=== PATIENT | female | born 1990 | race American Indian/Alaskan Native ===

== ENCOUNTER 2016-12-14 17:31 | Emergency (ER) | payer MEDICAID, OTHER ==
--- NOTE | 2016-12-14 18:08 | Emergency Department Report ---
Stated Complaint: ABD PAIN/18 WEEKS PREG Time Seen by Provider: 12/14/16 18:05 - HPI History of Present Illness: PT c/o cramping to lower and middle abd. PT states she is 18 weeks . PT states today the cramping was worse. PT states she saw [employer] [employer] 3 weeks ago. PT states her only ultrasound was done at 5 weeks. - ROS Review of Systems: - vaginal bleeding - dysuria - Exam Physical Exam: PT looks well, non toxic abd soft and non tender MSE screening note: Focused history and physical exam performed. Due to findings the following was ordered: labs, us ED Disposition for MSE Condition: Stable
[2016-12-14 18:12] VITALS: BP 125/81
[2016-12-14 18:39] LABS: Basophils % (Auto) 0.2 % (0.0-1.8); Eosinophils % (Auto) 0.9 % (0.0-4.3); Hematocrit 30.4 % (30.3-42.9); Hemoglobin 10.5 gm/dl (10.1-14.3); Mean Corpuscular HGB Conc 35 % (30-34); Mean Corpuscular Hemoglobin 30 pg (28-32); Mean Corpuscular Volume 87 fl (79-97); Platelet Count 212 K/mm3 (140-440); Red Blood Count 3.49 M/mm3 (3.65-5.03); Red Cell Distribution Width 14.1 % (13.2-15.2); White Blood Count 11.1 K/mm3 (4.5-11.0)
[2016-12-14 18:50] LABS: Alanine Aminotransferase 14 units/L (7-56); Albumin 3.7 g/dL (3.9-5); Albumin/Globulin Ratio 1.4 %; Alkaline Phosphatase 65 units/L (35-129); Anion Gap 16 mmol/L; BUN/Creatinine Ratio 23; Bilirubin,Total < 0.20 mg/dL (0.1-1.2); Blood Urea Nitrogen 9 mg/dL (7-17); Carbon Dioxide 23 mmol/L (22-30); Chloride 100.2 mmol/L (98-107); Glucose 81 mg/dL (65-100); Potassium 3.6 mmol/L (3.6-5.0); Sodium 136 mmol/L (137-145); Total Protein 6.3 g/dL (6.3-8.2)
[2016-12-14 19:06] LABS: Bilirubin,Urine NEG (Negative); Blood,Urine NEG (Negative); Ketones,Urine NEG (Negative); Leukocyte Esterase,Urine NEG (Negative); Mucus,Urine 1+ /HPF; Nitrite,Urine NEG (Negative); Protein,Urine <15 mg/dL mg/dL (Negative); RBC,Urine < 1.0 /HPF (0.0-6.0); Urobilinogen,Urine < 2.0 mg/dL (<2.0)
--- NOTE | 2016-12-14 20:56 | Emergency Department Report ---
ED Female HPI - General Chief complaint: Abdominal Pain Stated complaint: ABD PAIN/18 WEEKS PREG Time Seen by Provider: 12/14/16 18:05 Source: patient Mode of arrival: Ambulatory Limitations: No Limitations - History of Present Illness Initial comments: Patient is 26 years old female 3 para 1 . Patient is 18 weeks coming with abdominal pain suprapubic crampy in nature. Patient denied any vaginal bleeding or discharge no dysuria, no nausea no vomiting. MD Complaint: pelvic pain -: Gradual, days(s) (2 days) Location: suprapubic Radiation: non-radiating Severity scale (0 -10): 4 Quality: cramping Improves with: none Worsens with: none Are you Now?: Yes (18 weeks ) Associated Symptoms: abdominal pain. denies: vaginal discharge, vaginal bleeding, nausea/vomiting, fever/chills, headaches, loss of appetite, dysuria, hematuria, shortness of breath, syncope, weakness - Related Data Sexually active: Yes : 3 Para: 1 Home Medications Medication Instructions Recorded Confirmed Last Taken Vit-Fe Fumar-FA [ 1 tab PO QDAY 12/14/16 12/14/16 Unknown Vitamin] Allergies Allergy/AdvReac Type Severity Reaction Status Date / Time No Known Allergies Allergy Verified 12/14/16 18:12 ED Review of Systems ROS: Stated complaint: ABD PAIN/18 WEEKS PREG Other details as noted in HPI Comment: All other systems reviewed and negative Constitutional: denies: chills, fever Respiratory: denies: cough, orthopnea, shortness of breath, SOB with exertion Cardiovascular: denies: chest pain, palpitations, dyspnea on exertion Gastrointestinal: abdominal pain. denies: nausea, vomiting, diarrhea, constipation, hematemesis, melena, hematochezia Genitourinary: denies: urgency, dysuria, frequency, hematuria Neurological: denies: headache, weakness ED Past Medical Hx - Past Medical History Previous Medical History?: No Hx Hypertension: No Hx Heart Attack/AMI: No Hx Congestive Heart Failure: No Hx Diabetes: No Hx Deep Vein Thrombosis: No Hx Renal Disease: No Hx Sickle Cell Disease: No Hx Seizures: No Hx Asthma: No Hx COPD: No Hx HIV: No - Surgical History Past Surgical History?: Yes Additional Surgical History: L ovary removed - Social History Smoking Status: Never Smoker Substance Use Type: None - Medications Home Medications: Home Medications Medication Instructions Recorded Confirmed Last Taken Type Vit-Fe Fumar-FA [ 1 tab PO QDAY 12/14/16 12/14/16 Unknown History Vitamin] ED Physical Exam - General Limitations: No Limitations General appearance: alert, in no apparent distress - Head Head exam: Present: atraumatic, normocephalic - Eye Eye exam: Present: normal appearance - ENT ENT exam: Present: normal exam, normal orophraynx, mucous membranes moist - Neck Neck exam: Present: normal inspection - Respiratory Respiratory exam: Present: normal lung sounds bilaterally. Absent: respiratory distress, wheezes, rales, rhonchi - Cardiovascular Cardiovascular Exam: Present: regular rate, normal rhythm, normal heart sounds - GI/Abdominal GI/Abdominal exam: Present: soft, normal bowel sounds. Absent: distended, tenderness, guarding, rebound, rigid, diminished bowel sounds, mass, bruit, pulsatile mass, hernia - Extremities Exam Extremities exam: Present: normal inspection, full ROM, normal capillary refill. Absent: tenderness - Back Exam Back exam: Present: normal inspection. Absent: CVA tenderness (R), CVA tenderness (L) - Neurological Exam Neurological exam: Present: alert, oriented X3, CN II-XII intact, normal gait - Skin Skin exam: Present: warm, intact, normal color ED Course Vital Signs 12/14/16 18:06 Temperature 98.5 F Pulse Rate 102 H Respiratory 16 Rate Blood Pressure 125/81 O2 Sat by Pulse 100 Oximetry ED Medical Decision Making - Lab Data Result diagrams: 12/14/16 18:13 12/14/16 18:13 - Radiology Data Radiology results: report reviewed Transvaginal ultrasound OB limited showed a 18 weeks 6 days and to try and was no complication Critical care attestation.: If time is entered above; I have spent that time in minutes in the direct care of this critically ill patient, excluding procedure time. ED Disposition Clinical Impression: Abdominal pain affecting Disposition: DC-01 TO HOME OR SELFCARE Is pt being admited?: No Condition: Stable Instructions: Abdominal Pain (ED), Abdominal Pain in (ED) Referrals: PRIMARY CARE, [Primary Care Provider] - 3-5 Days
--- NOTE | 2016-12-14 21:56 | Ultrasound Report ---
FINAL REPORT EXAM: US OB \T\gt; = 14 WEEKS FETUS HISTORY: 18 weeks , pain TECHNIQUE: Obstetrical pelvic sonographic imaging was performed. PRIORS: None FINDINGS: There is a single live intrauterine gestation in vertex presentation. DEX is grossly within normal limits but not measured. Anterior grade 1 placenta without evidence of previa or abruption. heart rate measures 143 beats per minute. Cervical length measures 3.8 centimeters. measurements as follows: Biparietal diameter 18 weeks 5 days Head circumference 18 weeks 5 days Abdominal circumference 18 weeks 3 days Femur length 18 weeks 3 days. HC/AC ratio 1.23 Cephalic index 83.1. Estimated weight 240 grams +/-36 grams. Per the Hadlock criteria estimated weight is the 30th percentile. Sonographic gestational age by today's exam 18 weeks 4 days. Estimated due date by today's ultrasound 05/13/2017. IMPRESSION: Single live intrauterine gestation at 18 weeks 4 days with estimated due date by today's ultrasound of 05/13/2017. No evidence for abruption seen although ultrasound has low sensitivity in evaluating for abruption. No retroplacental hemorrhage. Anterior placenta without previa.
== END 2016-12-14 22:15 | disposition home or self-care (01) ==
LOC: ED 17:31
DX: O26.892 Other specified pregnancy related conditions, second trimester (principal); R10.9 Unspecified abdominal pain; Z90.721 Acquired absence of ovaries, unilateral; Z3A.18 18 weeks gestation of pregnancy
CPT/HCPCS: 36415; 76805; 80053; 81001; 84702; 85025; 86900; 86901

== ENCOUNTER 2017-05-03 21:17 | Outpatient (CLI) | payer MEDICAID, OTHER ==
[2017-05-03 21:39] VITALS: BP 119/69
== END 2017-05-03 22:15 | disposition home or self-care (01) ==
LOC: TRG 21:17 → LD 21:32 → TRG 22:15
PROVIDERS: ATTEND Obstetrics & Gynecology
DX: O36.8130 Decreased fetal movements, third trimester, not applicable or unspecified (principal); Z3A.38 38 weeks gestation of pregnancy
CPT/HCPCS: 59025

== ENCOUNTER 2017-05-05 21:29 | Inpatient (IN) | payer MEDICAID ==
[2017-05-05] MEDS ORDERED: STADOL IV PRN (22:09)
[2017-05-05] MEDS ORDERED: NORMOSOL-R PH 7.4 2,000 ML IV ONE (22:30)
[2017-05-05 22:56] LABS: Basophils % (Auto) 0.1 % (0.0-1.8); Eosinophils % (Auto) 0.5 % (0.0-4.3); Hematocrit 33.1 % (30.3-42.9); Hemoglobin 10.9 gm/dl (10.1-14.3); Lymphocytes # (Auto) 1.5 K/mm3 (1.2-5.4); Lymphocytes % (Auto) 16.6 % (13.4-35.0); Mean Corpuscular HGB Conc 33 % (30-34); Mean Corpuscular Hemoglobin 27 pg (28-32); Mean Corpuscular Volume 82 fl (79-97); Monocytes # (Auto) 0.7 K/mm3 (0.0-0.8); Monocytes % (Auto) 8.2 % (0.0-7.3); Platelet Count 210 K/mm3 (140-440); Red Blood Count 4.03 M/mm3 (3.65-5.03); Red Cell Distribution Width 14.7 % (13.2-15.2)
[2017-05-06] MEDS ORDERED: ZOFRAN IV PRN (00:16)
[2017-05-06] MEDS ORDERED: NARCAN 2 MG/2 ML IV PRN (00:16)
[2017-05-06] MEDS ORDERED: BENADRYL IV PRN (00:16)
[2017-05-06] MEDS ORDERED: ePHEDrine SULFATE IV PRN (00:16)
[2017-05-06] MEDS ORDERED: MARCAINE 0.5% INFILTRATI ONE (00:35)
[2017-05-06] MEDS ORDERED: fentaNYL-BUPIV 2 MCG/ML-0.125% 200 MCG/100 ML BAG EPIDURAL SCH (01:00)
[2017-05-06] MEDS ORDERED: XYLOCAINE 2% INFILTRATI ONE ×2 (01:29→01:35)
[2017-05-06] MEDS ORDERED: MINERAL OIL ONE (01:29)
[2017-05-06] MEDS ORDERED: MINERAL OIL PO PRN (01:35)
[2017-05-06] MEDS ORDERED: PITOCin/NS 20 UNIT/1000ML DRIP 20,000 MILLIUNITS/1,000 ML BAG IV ONE (01:38)
--- NOTE | 2017-05-06 01:43 | History and Physical Report ---
History of Present Illness Date of examination: 05/06/17 Date of admission: 05/05/17 22:09 Chief complaint: Labor Pains History of present illness: Early entry to care, co-pratik with [facility]. course complicated by Anemia, Excessive maternal weight gain, and HAs. 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 (EAB and oophorectomy) [employer] WORKER History: chlamydia, gonorrhea Family/Genetic History: Down's syndrome (sister) Social history: no significant social history, single - Obstetrical History Expected Date of Delivery: 05/16/17 Actual Gestation: 38 Week(s) 4 Day(s) : 3 Para: 1 Number of Pregnancies: 1 Induced : 1 Number of Living Children: 1 #1 Infant Gender: Male year: Birthweight: 2.693 kg Method of Delivery: Vaginal Gestational age at delivery: 35 Medications and Allergies Allergies Allergy/AdvReac Type Severity Reaction Status Date / Time No Known Allergies Allergy Verified 12/14/16 18:12 Home Medications Medication Instructions Recorded Confirmed Last Taken Type Vit-Fe Fumar-FA [ 1 tab PO QDAY 12/14/16 12/14/16 Unknown History Vitamin] Active Meds: Active Medications Butorphanol Tartrate (Stadol) 2 mg IV Q2H PRN PRN Reason: Labor Pain Last Admin: 05/05/17 22:40 Dose: 2 mg Diphenhydramine HCl (Benadryl) 12.5 mg IV Q2H PRN PRN Reason: Itching Ephedrine Sulfate (Ephedrine Sulfate) 10 mg IV Q2M PRN PRN Reason: Hypotension Fentanyl/Bupivacaine/Sodium Chlor (Fentanyl-Bupiv 2 Mcg/Ml-0.125%) 200 mcg in 100 mls @ 12 mls/hr EPIDURAL TITR CHRIS; Protocol Last Admin: 05/06/17 00:50 Dose: 12 mls/hr Influenza Virus Vaccine Quadrival (Fluarix Quad [id number](36 Mos+) 0.5 ml IM .ONCE ONE Stop: 05/06/17 12:01 Lidocaine (Xylocaine 2%) 20 ml INFILTRATI ONCE ONE Stop: 05/06/17 01:36 Mineral Oil (Mineral Oil) 30 ml PO QHS PRN PRN Reason: Constipation Naloxone HCl (Narcan 2 Mg/2 Ml) 0.2 mg IV Q5M PRN PRN Reason: Respiratory sedation Ondansetron HCl (Zofran) 4 mg IV Q8H PRN PRN Reason: Nausea And Vomiting Review of Systems All systems: negative - Vital Signs Vital signs: Vital Signs Temp Pulse Resp BP 98.7 F 72 18 137/74 05/05/17 21:47 05/05/17 21:47 05/05/17 21:47 05/05/17 21:47 Temp Pulse Resp BP Pulse Ox 97.7 F 89 18 122/75 100 05/05/17 22:52 05/06/17 01:33 05/05/17 22:52 05/06/17 01:12 05/06/17 01:33 - Physical Exam Breasts: Positive: normal Cardiovascular: Regular rate Lungs: Positive: Clear to auscultation, Normal air movement Abdomen: Positive: normal appearance, soft, normal bowel sounds Genitourinary (Female): Positive: normal external genitalia, normal perenium Vagina: Positive: normal moisture Uterus: Positive: enlarged Anus/Rectum: Positive: normal perianal skin Extremities: Positive: normal - Obstetrical FHR: category 1 Uterine Contraction Monitor Mode: External Cervical Dilatation: 9 (Small amount of clear fluid upon AROM at 0123) Cervical Effacement Percentage: 100 station: +1 Uterine Contraction Pattern: Regular Uterine Tone Measurement Phase: Resting Uterine Contraction Intensity: Moderate Results Result Diagrams: 05/05/17 22:30 Abnormal lab results 05/05/17 Range/Units 22:30 MCH 27 L (28-32) pg [place] % (Auto) 8.2 H (0.0-7.3) % Seg Neutrophils % 74.6 H (40.0-70.0) % All other labs normal. Assessment and Plan A: IUP @ 38 4/7 Weeks Category I Tracing Active Labor GBS Negative P: Admit to L&D per Routine Orders AROM
[2017-05-06] MEDS ORDERED: BENADRYL PO PRN (02:14)
[2017-05-06] MEDS ORDERED: DULCOLAX PR PRN (02:14)
--- NOTE | 2017-05-06 02:19 | Procedure Note ---
OB Delivery Note - Delivery Date of Delivery: 05/06/17 (0158) Surgeon: CHANDU COLEMAN Estimated blood loss: other (150) - Vaginal Delivery presentation: vertex Delivery position: OA Intrapartum events: none Delivery induction: none Delivery augmentation: rupture of membranes Delivery monitor: external FHT, external uterine Route of delivery: Delivery placenta: spontaneous Delivery cord: 3 umbilical vessels Episiotomy: none Delivery laceration: none Anesthesia: epidural Delivery comments: of a live 6'15 male over a intact perineum under epidural anesthesia with Apgars of 8 and 9 at 0158 on 05/06/2017. directly to maternal abd/chest, skin to skin contact. Spontaneous delivery of placenta complete and intact with [place] side presenting at 0201. Fundus is firm and midline located 4 below the U. Lochia is scant. Delayed cord clamping and cutting; Cord cut by the Father of the Baby. - A at 1 minute: 8 at 5 minutes: 9 Gender: Male (6'15)
[2017-05-06] MEDS ORDERED: SODIUM CHLORIDE FLUSH SYRINGE 10 ML IV PRN (03:00)
[2017-05-06] MEDS: MOTRIN PO SCH ×3 (06:36→17:48)
[2017-05-06] MEDS: NORCO 5/325 PO PRN ×2 (09:19→17:49)
[2017-05-06] MEDS ORDERED: Fluarix Quad 2017-2018(36 MOS+ IM ONE (12:00)
[2017-05-06] MEDS: PRENATAL VITAMIN PO SCH (12:54)
[2017-05-06 17:47] LABS: Hematocrit 28.3 % (30.3-42.9); Hemoglobin 9.5 gm/dl (10.1-14.3)
[2017-05-07] MEDS: NORCO 5/325 PO PRN (00:08)
[2017-05-07] MEDS: MOTRIN PO SCH ×3 (00:09→12:35)
--- NOTE | 2017-05-07 09:19 | Progress Note ---
Assessment and Plan A: day 1, Stable P: Routine care Plan discharge tomorrow morning Subjective - Subjective Date of service: 05/07/17 Principal diagnosis: spontaneous labor Interval history: Patient reports: appetite normal, voiding normally, pain well controlled, flatus , ambulating normally : doing well, nursing well (Will begin supplementation due to jaundice) Objective - Vital Signs Latest vital signs: Vital Signs Temp Pulse Resp BP Pulse Ox 05/07/17 00:25 98.4 F 89 18 110/73 100 05/06/17 17:49 20 05/06/17 17:48 20 05/06/17 17:00 97.7 F 98 H 18 102/82 05/06/17 13:23 97.4 F L 94 H 18 123/68 05/06/17 12:24 20 05/06/17 10:19 220 H 05/06/17 09:19 18 Intake and Output 05/06/17 05/07/17 05/07/17 23:59 07:59 15:59 Intake Total 480 480 Balance 480 480 Intake: Oral 480 480 Other: Total, Intake Amount 240 240 # Voids Void 1 1 - Exam Breasts: Present: normal, Cardiovascular: Present: Regular rate Lungs: Present: Clear to auscultation Abdomen: Present: normal appearance, soft, normal bowel sounds Vulva: both: normal Uterus: Present: normal, firm, fundal height at umbilicus Extremities: Present: normal Deep Tendon Reflex Grade: Normal +2 - Labs Labs: Abnormal lab results 05/06/17 Range/Units 17:08 Hgb 9.5 L (10.1-14.3) gm/dl Hct 28.3 L (30.3-42.9) %
--- NOTE | 2017-05-07 09:24 | Discharge Summary ---
Providers - Providers Date of Admission: 05/05/17 22:09 Date of discharge: 05/08/17 Attending physician: CLIFFORD DELACRUZ MD Primary care physician: CLIFFORD DELACRUZ MD Hospitalization Reason for admission: active labor, IUP at term Delivery: Episiotomy: none Laceration: none Other procedures: none complications: none Discharge diagnosis: IUP at term delivered [place] baby: male (6 lbs 15 oz) Condition at discharge: Good Disposition: DC-01 TO HOME OR SELFCARE Plan - Provider Discharge Summary Activity: routine, no sex for 6 weeks, no heavy lifting 4 weeks, no strenuous exercise Diet: routine Instructions: routine Additional instructions: [] Smoking cessation referral if applicable(refer to patient education folder for contact #) [] Refer to [facility] Booklet Call your doctor immediately for: * Fever > 100.5 * Heavy vaginal bleeding ( >1 pad per hour) * Severe persistent headache * Shortness of breath * Reddened, hot, painful area to leg or breast * Drainage or odor from incision. * Keep incision clean and dry at all times and follow doctor's instructions regarding bathing/showering - Follow up plan Follow up: PURNIMA PALMER CNM [Advanced Practice Nurse] - 6 Weeks
[2017-05-07] MEDS: PRENATAL VITAMIN PO SCH (12:37)
[2017-05-07] MEDS ORDERED: LANSINOH TP ONE (14:43)
[2017-05-08] MEDS: MOTRIN PO SCH ×2 (01:11→13:14)
[2017-05-08] MEDS: NORCO 5/325 PO PRN ×2 (02:05→10:46)
[2017-05-08] MEDS: PRENATAL VITAMIN PO SCH (10:46)
[2017-05-08 17:53] VITALS: BP 126/76
== END 2017-05-08 17:45 | disposition home or self-care (01) | DRG 775 ==
LOC: TRG 21:29 → LD 22:09 → OB 05-06 06:26
PROVIDERS: ADMIT Obstetrics & Gynecology; ATTEND Obstetrics & Gynecology
PROC: 10907ZC Drainage of Amniotic Fluid, Therapeutic from Products of Conception, Via Natural or Artificial Opening (ICD-10-PCS; 2017-05-05)
PROC: 10E0XZZ Delivery of Products of Conception, External Approach (ICD-10-PCS; principal; 2017-05-06)
PROC: 3E0234Z Introduction of Serum, Toxoid and Vaccine into Muscle, Percutaneous Approach (ICD-10-PCS; 2017-05-06)
PROC: 3E0R3BZ Introduction of Anesthetic Agent into Spinal Canal, Percutaneous Approach (ICD-10-PCS; 2017-05-06)
PROC: 00HU33Z Insertion of Infusion Device into Spinal Canal, Percutaneous Approach (ICD-10-PCS; 2017-05-06)
DX: O80 Encounter for full-term uncomplicated delivery (principal); Z3A.38 38 weeks gestation of pregnancy; Z37.0 Single live birth; Z23 Encounter for immunization; Z90.721 Acquired absence of ovaries, unilateral
CPT/HCPCS: 36415; 85014; 85018; 85025; 86850; 86900; 86901; 99211; A6250; G0463; J0595; J2590